=== PATIENT | female | born 1990 | race Caucasian/White ===

== ENCOUNTER 2016-12-01 11:46 | Emergency (ER) | payer OTHER ==
[2016-12-01 11:50] VITALS: BP 129/81; PULSE 74; TEMP 98.1; BMI 21.0
--- NOTE | 2016-12-01 12:17 | PDOC ---
History of Present Illness - General Chief Complaint: Laceration Stated Complaint: LACERACTION Time Seen by Provider: 12/01/16 11:59 History Source: Patient, Old Records Exam Limitations: No Limitations - History of Present Illness Initial Comments: 12/01/16 12:11 26-year-old female with history of hepatitis C and drug dependenceon methadone maintenance who presents to the emergency department with laceration to the left upper arm that occurred more than 24 hours ago while the patient was playing with a knife. The patient states that she did not come to the hospital yesterday because she was afraid that she might need stitches. The patient came to the emergency department today because she was advised by friends to come get the wound evaluated. She denies fevers, chills, purulent drainage from the wound. The patient states that she received a tetanus shot approximately 3 years ago. Past History - Past Medical History Allergies/Adverse Reactions: Allergies Allergy/AdvReac Type Severity Reaction Status Date / Time No Known Allergies Allergy Verified 12/01/16 11:47 Home Medications: Ambulatory Orders Methadone [Dolophine -] 0 mg PO DAILY 12/01/16 Other medical history: HEPATITIS - Psycho/Social/Smoking Cessation Hx Anxiety: No Suicidal Ideation: No Smoking History: Current every day smoker Number of Cigarettes Smoked Daily: 5 Information on smoking cessation initiated: Yes 'Breaking Loose' booklet given: 12/01/16 Hx Alcohol Use: No Drug/Substance Use Hx: Yes Substance Use Type: Prescribed Review of Systems - Review of Systems Able to Perform ROS?: Yes Is the patient limited Serbian proficient: No Constitutional: No: Symptoms Reported HEENTM: No: Symptoms Reported Respiratory: No: Symptoms reported Cardiac (ROS): No: Symptoms Reported : No: Symptoms Reported Musculoskeletal: No: Symptoms Reported Integumentary: Yes: See HPI *Physical Exam - Vital Signs Last Vital Signs Temp Pulse Resp BP Pulse Ox 98.1 F 74 18 129/81 100 12/01/16 11:47 12/01/16 11:47 12/01/16 11:47 12/01/16 11:47 12/01/16 11:47 - Physical Exam Comments: 12/01/16 12:15 GENERAL: Well developed, well nourished. Awake and alert. No acute distress. HEENT: Normocephalic, atraumatic. PERRLA, EOMI. No conjunctival pallor. Sclera are non- icteric. Moist mucous membranes. Oropharynx is clear. EXTREMITIES: No cyanosis. No clubbing. No edema. No calf tenderness. SKIN: Warm and dry. Normal capillary refill. No rashes. No jaundice. There is a superficial linear laceration to the flexor burface of the left bicep region measuring approximately 5 cm. There is no erythema or purulent drainage from the wound. NEUROLOGICAL: Alert, awake, appropriate. Cranial nerves 2-12 intact. Grossly non-focal exam. PSYCHIATRIC: Cooperative. Good eye contact. Appropriate mood and affect. Medical Decision Making - Medical Decision Making 12/01/16 12:14 26-year-old female with linear laceration that is greater than 24 hours old. The wound appears clean with no signs of infection or purulent drainage, cellulitis. Plan: 1. Wound was cleansed in the emergency department and Steri-Strips were applied. 2. Wound care was discussed with the patient. 3. The patient was advised to return to the emergency department if the wound appeared red, swollen, purulent drainage or any other signs of infection. *DC/Admit/Observation/Transfer Diagnosis at time of Disposition: Laceration of left upper arm without complication - Discharge Dispostion Disposition: HOME Condition at time of disposition: Stable Admit: No - Patient Instructions Printed Discharge Instructions: DI for Laceration Repair Additional Instructions: Since her wound was greater than 24 hours old it was not repaired with sutures; however, it was approximated with Steri-Strips. The Steri-Strips will fall off by themselves to you do not need to return to the emergency department to have them removed. Please keep the wound clean and dry. If you notice that the wound is red, swollen, purulent drainage or any other symptoms please return to the emergency department for reevaluation as these are signs of infection. He may take Tylenol as needed for pain. Please follow-up with your primary care physician or return to the emergency department if your symptoms persist, worsen , or new symptoms arise.
== END 2016-12-01 12:31 | disposition home or self-care (01) ==
LOC: FER 11:46
DX: S51.812A Laceration without foreign body of left forearm, initial encounter (principal); W26.0XXA Contact with knife, initial encounter; Y93.89 Activity, other specified; Y92.9 Unspecified place or not applicable; F17.210 Nicotine dependence, cigarettes, uncomplicated; B19.20 Unspecified viral hepatitis C without hepatic coma; F11.20 Opioid dependence, uncomplicated
CPT/HCPCS: 99282-25

== ENCOUNTER 2017-05-22 15:23 | Emergency (ER) | payer OTHER ==
--- NOTE | 2017-05-22 15:27 | PDOC ---
History of Present Illness - General History Source: Patient Exam Limitations: No Limitations - History of Present Illness Initial Comments: 05/22/17 17:19 Patient is a 26 year old female with a significant past medical history of hepatitis C and drug dependence, who presents to the ED with complaints of painful and bloody urine that began 2 days. Patient reports experiencing painful urination that initially began 2 days ago but has begun to increase in intensity with each passing today, prompting her to come in to the ED for further evaluation. She reports having a hx of UTI a few years ago but has not had once since. Patient reports experiencing increased tiredness this morning while at home, that states is completely unlike her. She reports experiencing intermittent chills, nausea, and 2 episodes of vomiting this morning. Patient states she currently does not take medication for her Hepatitis but states she will start her prescription in June. Denies chest pain, SOB. Denies fever. Denies contact with sick individuals, out of state travelling. Denies any other symptoms. Allergies: None Social history: No alcohol. Current smoker (5 cigarettes per day). No illicit drugs. Surgical history: None PMD: None <Sathish Hines - Last Filed: 05/22/17 17:23> <Keily Kingsley - Last Filed: 05/22/17 17:40> - General Chief Complaint: Urinary Problem Stated Complaint: URINARY SX, BURING, HEMATURIA Time Seen by Provider: 05/22/17 15:27 Past History <Sathish Hines - Last Filed: 05/22/17 17:23> - Suicide/Smoking/Psychosocial Hx Smoking History: Current every day smoker Number of Cigarettes Smoked Daily: 5 'Breaking Loose' booklet given: 12/01/16 Hx Alcohol Use: No Drug/Substance Use Hx: Yes Substance Use Type: Prescribed <Keily Kingsley - Last Filed: 05/22/17 17:40> - Past Medical History Allergies/Adverse Reactions: Allergies Allergy/AdvReac Type Severity Reaction Status Date / Time No Known Allergies Allergy Verified 05/22/17 15:24 Home Medications: Ambulatory Orders Methadone [Dolophine -] 110 mg PO DAILY 12/01/16 Cephalexin [Keflex] 500 mg PO BID #14 capsule 05/22/17 Review of Systems - Review of Systems Able to Perform ROS?: Yes Comments:: 05/22/17 17:20 GENERAL/CONSTITUTIONAL: No fever or chills. No weakness. HEAD, EYES, EARS, NOSE AND THROAT: No change in vision. No ear pain or discharge. No sore throat. CARDIOVASCULAR: No chest pain or shortness of breath. RESPIRATORY: No cough, wheezing, or hemoptysis. GASTROINTESTINAL: +Nausea. +Vomiting. No diarrhea or constipation. GENITOURINARY: +Dysuria. +Hematuria. +Urinary frequency. +Urinary urgency. MUSCULOSKELETAL: No joint or muscle swelling or pain. No neck or back pain. SKIN: No rash NEUROLOGIC: No headache, vertigo, loss of consciousness, or change in strength/ sensation. ENDOCRINE: No increased thirst. No abnormal weight change. HEMATOLOGIC/LYMPHATIC: No anemia, easy bleeding, or history of blood clots. ALLERGIC/IMMUNOLOGIC: No hives or skin allergy. All Other Systems: Reviewed and Negative <Sathish Hines - Last Filed: 05/22/17 17:23> *Physical Exam - Vital Signs Last Vital Signs Temp Pulse Resp BP Pulse Ox 97.7 F 81 18 104/70 99 05/22/17 15:25 05/22/17 15:25 05/22/17 15:25 05/22/17 15:25 05/22/17 15:25 - Physical Exam Comments: 05/22/17 17:20 GENERAL: Awake, alert, and fully oriented, in no acute distress HEAD: No signs of trauma EYES: PERRLA, EOMI, sclera anicteric, conjunctiva clear ENT: Auricles normal inspection, hearing grossly normal, nares patent, oropharynx clear without exudates. Moist mucosa NECK: Normal ROM, supple, no lymphadenopathy, JVD, or masses LUNGS: Breath sounds equal, clear to auscultation bilaterally. No wheezes, and no crackles HEART: Regular rate and rhythm, normal S1 and S2, no murmurs, rubs or gallops ABDOMEN: Soft, nontender, normoactive bowel sounds. No guarding, no rebound. No masses PELVIC: +Minimal amount of whitish discharge, +OSS closed +No CMT, No adnexal tenderness. No external lesions, EXTREMITIES: Normal range of motion, no edema. No clubbing or cyanosis. No cords, erythema, or tenderness NEUROLOGICAL: Cranial nerves II through XII grossly intact. Normal speech, normal gait SKIN: Warm, Dry, normal turgor, no rashes or lesions noted. <Sathish Hines - Last Filed: 05/22/17 17:23> ED Treatment Course - LABORATORY CBC & Chemistry Diagram: 05/22/17 16:00 05/22/17 16:00 - ADDITIONAL ORDERS Additional order review: Laboratory Results 05/22/17 05/22/17 16:00 16:00 Sodium 138 Potassium 3.7 Chloride 104 Carbon Dioxide 26 Anion Gap 8 BUN 5 L Creatinine 0.7 Creat Clearance w eGFR > 60 Random Glucose 112 H Calcium 9.2 Total Bilirubin 0.2 AST 53 H ALT 68 H Alkaline Phosphatase 61 Total Protein 7.1 Albumin 4.2 Urine Color Yellow Urine Appearance Clear Urine pH 7.0 Ur Specific [place] 1.015 Urine Protein Negative Urine Glucose (UA) Negative Urine Ketones Trace Urine Blood Negative Urine Nitrite Negative Urine Bilirubin Negative Urine Urobilinogen 0.2 Ur Leukocyte Esterase Negative 05/22/17 16:00 RBC 4.56 MCV 93.1 MCHC 32.8 RDW 12.1 MPV 9.6 Neutrophils % 68.7 Lymphocytes % 23.0 Monocytes % 5.4 Eosinophils % 2.4 Basophils % 0.5 - Medications Given in the ED: ED Medications Discontinued Medications Generic Name Dose Route Start Last Admin Trade Name Freq PRN Reason Stop Dose Admin Sodium Chloride 1,000 mls @ 1,000 mls/hr 05/22/17 15:47 05/22/17 16:15 Normal Saline - IV 05/22/17 16:46 1,000 mls/hr ASDIR STA Administration <Sathish Hines - Last Filed: 05/22/17 17:23> - LABORATORY CBC & Chemistry Diagram: 05/22/17 16:00 05/22/17 16:00 <Keily Kingsley - Last Filed: 05/22/17 17:40> Medical Decision Making - Medical Decision Making 05/22/17 17:24 Pt presents to the ED complaining of dysuria, urgency and frequency, accompanied by generalized malaise, nausea and vomiting and chills. No flank pain suggestive of pyelonephritis. UA is negative, but patient reports drinking large quantities of water and I can see no other explaination for her pain. Will likely discharge home with treatment for uncomplicated UTI., <Keily Kingsley - Last Filed: 05/22/17 17:40> *DC/Admit/Observation/Transfer - Attestations Scribe Attestion: 05/22/17 17:20 Documentation prepared by Sathish Hines, acting as faculty i on call medical assistant for Keily Kingsley MD, /DO. <Sathish Hines - Last Filed: 05/22/17 17:23> - Discharge Dispostion Admit: No <Keily Kingsley - Last Filed: 05/22/17 17:40> Diagnosis at time of Disposition: Urinary tract infection Qualifiers: Urinary tract infection type: acute cystitis Hematuria presence: with hematuria Qualified Code(s): N30.01 - Acute cystitis with hematuria - Discharge Dispostion Disposition: HOME Condition at time of disposition: Good - Prescriptions Prescriptions: Cephalexin [Keflex] 500 mg PO BID #14 capsule - Patient Instructions Printed Discharge Instructions: DI for Urinary Tract Infection (UTI) Additional Instructions: return to the ED for fever, nausea and vomiting, pain with urination that does not go away after three days of antibiotics, flank pain, new or worsening symptoms.
[2017-05-22 15:30] VITALS: BP 104/70; PULSE 81; TEMP 97.7; BMI 21.1
[2017-05-22] MEDS ORDERED: SODIUM CHLORIDE 1,000 ML IV STA (15:47)
[2017-05-22 16:36] LABS: URINE APPEARANCE Clear; URINE BILIRUBIN Negative (NEGATIVE); URINE BLOOD Negative (NEGATIVE); URINE GLUCOSE (UA) Negative (NEGATIVE); URINE KETONE Trace (NEGATIVE); URINE NITRITE Negative (NEGATIVE); URINE PROTEIN Negative (NEGATIVE); URINE UROBILINOGEN 0.2 (0.2-1.0)
[2017-05-22 16:46] LABS: URINE COLOR YELLOW
[2017-05-22 16:56] LABS: ALBUMIN 4.2 g/dl (3.5-5.0); ALK PHOS 61 U/L (32-92); ANION GAP 8 (8-16); BILIRUBIN,TOTAL 0.2 mg/dl (0.2-1.0); BLOOD UREA NITROGEN 5 mg/dl (7-18); CALCIUM 9.2 mg/dl (8.4-10.2); CHLORIDE 104 mmol/L (98-107); CO2 26 mmol/L (22-28); CREATININE 0.7 mg/dl (0.6-1.3); GLUCOSE,RANDOM 112 mg/dl (74-106); POTASSIUM 3.7 mmol/L (3.5-5.1); SGOT/AST 53 U/L (10-42); SGPT/ALT 68 U/L (10-40); SODIUM 138 mmol/L (136-145); TOT PROT 7.1 g/dl (6.4-8.3)
[2017-05-22 17:05] LABS: BASO % 0.5 % (0-2.0); EOS % 2.4 % (0-4.5); HEMATOCRIT 42.4 % (32.4-45.2); HEMOGLOBIN 13.9 GM/dl (10.7-15.3); MCH 30.6 pg (25.7-33.7); MCHC 32.8 g/dl (32.0-36.0); MEAN CELL VOLUME 93.1 fl (80-96); MEAN PLT VOLUME 9.6 fl (7.5-11.1); MONO % 5.4 % (3.8-10.2); NEUT % 68.7 % (42.8-82.8); PLATELET COUNT 159 K/MM3 (134-434); RBC 4.56 M/mm3 (3.60-5.2); RDW 12.1 % (11.6-15.6); WHITE BLOOD COUNT 8.2 K/mm3 (4.0-10.8)
[2017-05-22 17:32] LABS: HCG,QUALITATIVE URINE NEGATIVE
== END 2017-05-22 18:08 | disposition home or self-care (01) ==
LOC: FER 15:23
PROC: 3E0337Z Introduction of Electrolytic and Water Balance Substance into Peripheral Vein, Percutaneous Approach (ICD-10-PCS; principal; 2017-05-22)
DX: N30.01 Acute cystitis with hematuria (principal)
CPT/HCPCS: 36415; 80053; 81003; 84703; 85025; 99283-25